=== PATIENT | female | born 1975 | race Caucasian/White ===

== ENCOUNTER 2016-12-09 11:17 | Emergency (ER) | payer OTHER, MEDICAID ==
[2016-12-09 11:24] VITALS: BP 125/73; PULSE 84; TEMP 98.2; BMI 27.2
[2016-12-09] MEDS ORDERED: OXYCODONE HCL 5 MG TABLET PO ONE (11:36)
--- NOTE | 2016-12-09 11:43 | EDPRACDOC ---
- General Information Chief Complaint: Foot Pain Stated Complaint: RIGHT FOOT Time Seen by Provider: 12/09/16 11:26 Information Source: Patient Mode of Arrival: Car Home Medications: Home Medications Tramadol HCl [Ultram] 50 mg PO Q6H #14 tab 12/09/16 Allergies/Adverse Reactions: Allergies Allergy/AdvReac Type Severity Reaction Status Date / Time No Known Allergies Allergy Verified 12/09/16 11:54 - History of Present Illness Onset: MAIL MACHINE OPERATOR HPI: PT PRESENTS WITH RIGHT FOOT PAIN DUE TO DROPPING A HEAVY PIECE OF EQUIPMENT ON IT FROM WORK. STATES THE ANTERIOR PORTION OF THE TOE AND HEEL HURT. NO OBVIOUS INJURY NOTED. 2+ PEDAL PULSE NOTED. BRISK CAP REFILL NOTED. NEURO-VASCULAR INTACT. Foot Problem Location: Reports: Right, Anterior Mechanism: Reports: Blunt Trauma Circumstances: Reports: Work-related Tetanus Up To Date?: No Able to Bear Weight: Limited Pain Severity: Reports: Moderate Associated Signs & Symptoms: Reports: None ED Past Medical History - History Reviewed Yes Nurses notes reviewed and agree except as marked - Patient Medical History Psychological History: Denies: Depression Surgical History: Reports: Cholecystectomy, Tonsillectomy/Adnoidectomy - Social Medical History Smoking Status: Never smoker EDM Review of Systems - Review of Systems ROS Negative Except as Marked: Yes All systems reviewed and were negative except as marked - Physical Exam Constitutional: Alert Oriented to: Time, Person, Place Last recorded Vital Signs: Last Vital Signs Temp 98.2 F 12/09/16 11:23 Pulse 84 12/09/16 11:23 Resp 18 12/09/16 11:23 BP 125/73 12/09/16 11:23 Pulse Ox 100 12/09/16 11:23 Oxygen Pulse Oxygen Saturation 100 O2 Device Oxygen Flow Rate Fraction of Inspired Oxygen ( FIO2) - HEENT Head: Normal ( normocephalic) Eye Exam: Normal (PERRL, EOMI, Sclera white) Oropharynx: Normal (Pharynx:Moist without exudate,Gums-no swelling) Nose: No Symptoms Reported (septum midline) Neck: Normal (FROM, trachea at midline) - Respiratory/Cardiovascular Respiratory: Normal - CTA (BBS clear to auscultation without adventitious sounds ) Cardiovascular: Normal (RRR without murmur, gallop or rub) - GI Auscultation: Normal (NABS) Palpation: Normal (Soft,No rebound or guarding, non distended) Tenderness: Non tender Ziegler's Sign: Negative Rectal Exam: Deferred - Musculoskeletal Back: Normal (Non-Tender) Extremities: Normal (Normal tone, Pulses 2+ No cyanosis or edema, FROM) - Integumentary Skin: Normal, Warm, Dry Lymphatics: Normal (no adenopathy) - Neurologic Memory Impaired: Normal Motor Function: Normal (Normal tone, Pulses 2+ No cyanosis or edema, FROM) Cranial Nerve: Normal (CN II-X11 intact sensation, strength 5/5) Cerebellar: Normal Mood Description: Normal Perception: Normal ED Foot Problem Phys Exam - Musculoskeletal Foot: Normal Ankle: Normal Achilles Tendon: Normal Nail: Normal Nailbed: Normal Soft Tissue: Normal Digit: Normal Digit Strength: Normal Distal Function/Circulation: Normal - Integumentary Skin: Normal Lymphatics: Normal - Differential Diagnosis Sprain, Other Decision Time to Discharge: 12:07 - Departure Disposition: Home Condition: Stable Final Diagnosis: Right foot pain Instructions: RICE: Routine Care for Injuries, Foot Sprain (ED) Education/Counseling Given To: Patient Education/Counseling Given Regarding: Diagnosis, Treatment, Prognosis, Follow Up Referrals: Payam Sheffield MD [Staff Physician] - One Week Joselito Phillip MD [Staff Physician] - One Week Prescriptions: New Tramadol HCl [Ultram] 50 mg PO Q6H #14 tab Forms: Excuse Note Additional Instructions: ICE AND ELEVATION IS VERY IMPORTANT. FOLLOW UP WITH PCP NEXT WEEK. RETURN TO THE ED FOR WORSENING SYMPTOMS OR CONCERNS. IF PAIN PERSIST PLEASE MAKE A FOLLOW UP APPOINTMENT WITH ORTHOPEDIC.
--- NOTE | 2016-12-09 12:06 | DIRPT ---
CLINICAL DATA: Dropped a heavy object on right foot this morning. EXAM: RIGHT FOOT COMPLETE - 3+ VIEW COMPARISON: None. FINDINGS: The joint spaces are maintained. No acute fracture is identified. IMPRESSION: No acute fracture. Electronically Signed By: Kimberlyn Garcia M.D. On: 12/09/2016 12:03
== END 2016-12-09 12:44 | disposition home or self-care (01) ==
LOC: EDMC 11:17
DX: M79.671 Pain in right foot (principal)
CPT/HCPCS: 73630; 99282; J3490